=== PATIENT | female | born 1970 | race African-American/Black ===

== ENCOUNTER 2017-11-24 23:08 | Inpatient (IN) | payer OTHER ==
[~2017-11-24] VITALS: Ht 162.6 cm; Wt 95.2 kg
[2017-11-24] MEDS ORDERED: HALO1 PO (23:19)
[2017-11-24 23:34] LABS: BASOPHILS % (AUTO) 0.2 % (0.0-2.0); EOSINOPHILS % (AUTO) 0.4 % (1.0-6.0); LYMPHOCYTES # (AUTO) 1.6 K/uL (1.0-4.8); MEAN CORPUSCULAR HEMOGLOBIN 20.5 pg (26.0-34.0); MEAN CORPUSCULAR HGB CONC 30.9 G/dL (31.0-37.0); MEAN CORPUSCULAR VOLUME 66 fL (80-100); MONOCYTES # (AUTO) 0.7 K/uL (0.1-1.0); MONOCYTES % (AUTO) 7.6 % (2.0-9.0); NEUTROPHILS # (AUTO) 7.5 K/uL (1.8-7.7); NEUTROPHILS % (AUTO) 75.8 % (40.0-70.0); PLATELET COUNT (AUTO) 212 K/uL (150-450); RED BLOOD CELL COUNT(AUTO) 3.05 MIL/uL (4.00-5.20); RED CELL DISTRIBUTION WIDTH 17.4 % (11.5-14.5)
[2017-11-24 23:45] LABS: HEMOGLOBIN 6.2 g/dL (12.0-16.0)
[2017-11-24 23:46] LABS: HEMATOCRIT 20.2 % (36-46)
[2017-11-24 23:54] LABS: APPEARANCE,URINE CLEAR (CLEAR); BILIRUBIN,URINE NEGATIVE (NEGATIVE); GLUCOSE, URINE (UA) NEGATIVE (NEGATIVE); KETONES,URINE NEGATIVE (NEGATIVE); LEUKOCYTE ESTERASE ,URINE NEGATIVE (NEGATIVE); NITRATE,URINE NEGATIVE (NEGATIVE); OCCULT BLOOD,URINE NEGATIVE (NEGATIVE); PH,URINE 7.5 (5.0-8.0); PROTEIN,URINE NEGATIVE (NEGATIVE); UROBILINOGEN,URINE 0.2 mg/dL (<=1.0)
[2017-11-24 23:59] LABS: ANION GAP 7 mmol/L (8-16); CARBON DIOXIDE 26 mmol/L (22-29); CHLORIDE 103 mmol/L (98-107); CREATININE 0.68 mg/dL (0.60-1.30); GLOMERULAR FILTR. RATE CALC > 60 mL/min (>60); GLUCOSE,RANDOM 111 mg/dL (70-110); POTASSIUM 3.9 mmol/L (3.5-5.1); SODIUM SERUM 136 mmol/L (136-145); UREA NITROGEN, BLOOD 14 mg/dL (7-18)
[2017-11-25] VITALS (24 sets, daily range): BP systolic 110–172; BP diastolic 51–88
[2017-11-25 00:04] LABS: ALANINE AMINOTRANSFERASE 20 U/L (12-78); ALBUMIN 3.8 g/dL (3.4-5.0); ALKALINE PHOSPHATASE 64 U/L (46-116); ASPARTATE AMINOTRANSFERASE 19 U/L (15-37); BILIRUBIN,TOTAL 0.4 mg/dL (0.1-1.0); LIPASE 61 U/L (73-393); TOTAL PROTEIN, SERUM 7.5 g/dL (6.4-8.2)
[2017-11-25] MEDS ORDERED: SODIUM CHLORIDE 0.9% 1,000 ML IV ONE (00:15)
[2017-11-25] MEDS ORDERED: IOVERSOL 350 MG/ML 150 ML VIAL ONE (00:49)
[2017-11-25] MEDS ORDERED: SODIUM CHLORIDE 0.9% 100 ML ONE (00:49)
[2017-11-25] MEDS ORDERED: 0.9% SODIUM CHLORIDE 10 ML SYRINGE IVP PRN (04:00)
[2017-11-25] MEDS ORDERED: ONDANSETRON HCL 4 MG/2 ML VIAL IVP PRN ×2 (04:00→04:45)
[2017-11-25] MEDS ORDERED: ACETAMINOPHEN 325 MG TABLET PO PRN ×2 (04:00→04:45)
[2017-11-25] MEDS ORDERED: ALBUTEROL SULFATE 2.5 MG/0.5 ML NEB SOLUTION NEB PRN (04:45)
[2017-11-25] MEDS ORDERED: IPRATROPIUM BROMIDE 0.5 MG/2.5 ML NEB SOLUTION NEB PRN (04:45)
[2017-11-25] MEDS ORDERED: OxyCODONE HCL/ACETAMINOPHEN 5-325 MG TABLET PO PRN (04:45)
[2017-11-25] MEDS ORDERED: MAGNESIUM HYDROXIDE SUSPENSION 30 ML UDCUP PO PRN (04:45)
[2017-11-25] MEDS ORDERED: ZOLPIDEM TARTRATE 5 MG TABLET PO PRN (04:45)
[2017-11-25] MEDS ORDERED: MORPHINE SULFATE 2 MG/ML SYRINGE IVP PRN (04:45)
[2017-11-25] MEDS ORDERED: BISACODYL 10 MG RECTAL RECTAL SUPPOSITORY PR PRN (04:45)
[2017-11-25] MEDS ORDERED: INFLUENZA VIRUS VACCINE QVS 2017-18 (3YR+)/PF 60 MCG/0.5 ML SYRINGE IM ONE (06:15)
[2017-11-25] MEDS: PANTOPRAZOLE SODIUM 40 MG DR TABLET PO SCH (08:52)
[2017-11-25] MEDS: MULTIVITAMINS WITH MINERALS, THERAPEUTIC TABLET PO SCH (08:52)
[2017-11-25] MEDS: FERROUS SULFATE 325 MG EC TABLET PO SCH ×2 (08:52→17:57)
[2017-11-25] MEDS ORDERED: HALOPERIDOL 1 MG TABLET PO SCH (09:00)
[2017-11-25] MEDS ORDERED: HALOPERIDOL 5 MG TABLET PO SCH (21:00)
[2017-11-26] VITALS: BP 146/79
[2017-11-26 04:00] VITALS: BP 134/83
[2017-11-26 06:17] LABS: BASOPHILS % (AUTO) 0.2 % (0.0-2.0); EOSINOPHILS % (AUTO) 1.1 % (1.0-6.0); HEMOGLOBIN 8.2 g/dL (12.0-16.0); LYMPHOCYTES # (AUTO) 2.2 K/uL (1.0-4.8); LYMPHOCYTES % (AUTO) 27.8 % (22.0-44.0); MEAN CORPUSCULAR HGB CONC 32.9 G/dL (31.0-37.0); MEAN CORPUSCULAR VOLUME 70 fL (80-100); MONOCYTES # (AUTO) 0.6 K/uL (0.1-1.0); NEUTROPHILS # (AUTO) 4.9 K/uL (1.8-7.7); NEUTROPHILS % (AUTO) 62.9 % (40.0-70.0); PLATELET COUNT (AUTO) 165 K/uL (150-450); RED BLOOD CELL COUNT(AUTO) 3.57 MIL/uL (4.00-5.20); RED CELL DISTRIBUTION WIDTH 21.3 % (11.5-14.5)
[2017-11-26 06:39] LABS: ALANINE AMINOTRANSFERASE 19 U/L (12-78); ALKALINE PHOSPHATASE 55 U/L (46-116); ANION GAP 7 mmol/L (8-16); ASPARTATE AMINOTRANSFERASE 15 U/L (15-37); BILIRUBIN,TOTAL 0.6 mg/dL (0.1-1.0); CALCIUM, TOTAL 8.4 mg/dL (8.8-10.5); CARBON DIOXIDE 25 mmol/L (22-29); CHLORIDE 106 mmol/L (98-107); CHOL/HDL RATIO 1.9 (3.9-5.7); CHOLESTEROL 128 mg/dL (131-200); GLOMERULAR FILTR. RATE CALC > 60 mL/min (>60); GLUCOSE,RANDOM 88 mg/dL (70-110); HDL CHOLESTEROL 67 mg/dL (40-60); LDL CHOL (CALC.) 47 mg/dL (0-130); POTASSIUM 3.7 mmol/L (3.5-5.1); SODIUM SERUM 138 mmol/L (136-145); THYROID STIMULATING HORMONE 2.74 uIU/mL (0.36-3.74); TOTAL PROTEIN, SERUM 6.3 g/dL (6.4-8.2); TRIGLYCERIDES 68 mg/dL (15-150); UREA NITROGEN, BLOOD 7 mg/dL (7-18)
[2017-11-26 06:51] LABS: % IRON SATURATION 8.7 % (22-44); IRON, SERUM 34 mcg/dL (50-175); TOTAL IRON BINDING CAPACITY 387 mcg/dL (250-450)
[2017-11-26 07:53] VITALS: BP 131/76
[2017-11-26] MEDS: FERROUS SULFATE 325 MG EC TABLET PO SCH (08:00)
[2017-11-26] MEDS: PANTOPRAZOLE SODIUM 40 MG DR TABLET PO SCH (08:10)
[2017-11-26] MEDS: MULTIVITAMINS WITH MINERALS, THERAPEUTIC TABLET PO SCH (08:10)
[2017-11-26] MEDS ORDERED: SODIUM CHLORIDE 0.9% 1,000 ML IV ONE ×2 (09:00→09:11)
[2017-11-26 09:12] LABS: INR 0.9 (0.9-1.1); PROTHROMBIN TIME 9.9 SEC (9.4-11.6)
[2017-11-26 11:11] VITALS: BP 143/85
[2017-11-26] MEDS ORDERED: PROPOFOL 1% 20 ML VIAL IVP ONE (12:00)
[2017-11-26] MEDS ORDERED: LIDOCAINE HCL/PF 2% 5 ML VIAL INJ ONE (12:00)
[2017-11-26 15:21] VITALS: BP 126/64
[2017-11-26] MEDS ORDERED: DOCU-119 PO (18:10)
[2017-11-26] MEDS ORDERED: FERR-89 PO (18:11)
[2017-11-26] MEDS ORDERED: PANT40TA25 PO (18:11)
== END 2017-11-26 18:35 | disposition home or self-care (01) | DRG 254 ==
LOC: EMS 23:12 → 4E 11-25 03:48
PROVIDERS: ADMIT Internal Medicine; ATTEND Internal Medicine
PROC: 30233N1 Transfusion of Nonautologous Red Blood Cells into Peripheral Vein, Percutaneous Approach (ICD-10-PCS; 2017-11-25)
PROC: 0DJ08ZZ Inspection of Upper Intestinal Tract, Via Natural or Artificial Opening Endoscopic (ICD-10-PCS; principal; 2017-11-26 10:00)
DX: K44.9 Diaphragmatic hernia without obstruction or gangrene (principal); D25.9 Leiomyoma of uterus, unspecified; R10.9 Unspecified abdominal pain; D63.8 Anemia in other chronic diseases classified elsewhere; E66.9 Obesity, unspecified; Z68.36 Body mass index [BMI] 36.0-36.9, adult; Z88.1 Allergy status to other antibiotic agents
CPT/HCPCS: 74177; 82270; 82306; 83540; 83550; 83735; 84100; 84443; 86850; 86900; 86901; 86920; 96360; 99285; J2704; J3490; J7030; J7050; P9016

== ENCOUNTER 2018-11-18 05:11 | Emergency (ER) | payer OTHER ==
[~2018-11-18] VITALS: Ht 162.6 cm; Wt 81.8 kg
[~2018-11-18 05:11] MED LIST: DOCU-119 PO; FERR-89 PO; PANT40TA25 PO
[2018-11-18] MEDS ORDERED: HYDROCODONE/ACETAMINOPHEN 5-325 MG TABLET PO ONE (06:15)
[2018-11-18] MEDS ORDERED: CYCLOBENZAPRINE HCL 10 MG TABLET PO ONE (06:15)
[2018-11-18 10:02] LABS: APPEARANCE,URINE CLOUDY (CLEAR); BILIRUBIN,URINE NEGATIVE (NEGATIVE); GLUCOSE, URINE (UA) NEGATIVE (NEGATIVE); KETONES,URINE NEGATIVE (NEGATIVE); LEUKOCYTE ESTERASE ,URINE SMALL (NEGATIVE); NITRATE,URINE NEGATIVE (NEGATIVE); OCCULT BLOOD,URINE LARGE (NEGATIVE); PROTEIN,URINE TRACE (NEGATIVE)
[2018-11-18 10:34] LABS: BACTERIA,URINE Moderate /HPF (None Seen); SQUAMOUS EPITHELIAL CELL,UR Moderate /LPF (None Seen)
[2018-11-18 11:17] VITALS: BP 110/67
== END 2018-11-18 11:43 | disposition home or self-care (01) ==
LOC: EMS 05:13
DX: M54.5 Low back pain (principal); N39.0 Urinary tract infection, site not specified; G89.29 Other chronic pain; F17.210 Nicotine dependence, cigarettes, uncomplicated; F12.90 Cannabis use, unspecified, uncomplicated; Z88.0 Allergy status to penicillin; Z88.6 Allergy status to analgesic agent
CPT/HCPCS: 72131; 74176; 87086; 99406

== ENCOUNTER 2019-03-05 13:18 | Emergency (ER) | payer OTHER ==
[~2019-03-05] VITALS: Ht 162.6 cm; Wt 90.9 kg
[~2019-03-05 13:18] MED LIST changes: -DOCU-119 PO; -PANT40TA25 PO
[2019-03-05] MEDS ORDERED: ACETAMINOPHEN 500 MG TABLET PO ONE (14:30)
[2019-03-05 16:00] VITALS: BP 121/90
== END 2019-03-05 16:11 | disposition home or self-care (01) ==
LOC: EMS 13:19
DX: R51 Headache (principal); F12.90 Cannabis use, unspecified, uncomplicated; Z88.1 Allergy status to other antibiotic agents; Z88.0 Allergy status to penicillin

== ENCOUNTER 2019-08-05 11:31 | Emergency (ER) | payer OTHER ==
[~2019-08-05] VITALS: Ht 162.6 cm; Wt 94.5 kg
[2019-08-05] MEDS ORDERED: ACETAMINOPHEN 500 MG TABLET PO ONE (15:00)
[2019-08-05] MEDS ORDERED: TraMADol HCL 50 MG TABLET PO ONE (15:15)
[2019-08-05 16:24] VITALS: BP 125/79
== END 2019-08-05 16:25 | disposition home or self-care (01) ==
LOC: EMS 11:31
DX: M77.9 Enthesopathy, unspecified (principal); F12.90 Cannabis use, unspecified, uncomplicated; Z88.6 Allergy status to analgesic agent; Z88.1 Allergy status to other antibiotic agents
CPT/HCPCS: 29105

== ENCOUNTER 2022-03-03 14:36 | Emergency (ER) | payer OTHER ==
[~2022-03-03] VITALS: Ht 165.1 cm; Wt 100.0 kg
[2022-03-03] MEDS ORDERED: SODIUM CHLORIDE 0.9% 1,000 ML IV ONE (16:00)
[2022-03-03] MEDS ORDERED: MORPHINE SULFATE 2 MG/ML SYRINGE IVP ONE (16:00)
[2022-03-03 16:15] LABS: BASOPHILS % (AUTO) 0.3 % (0.0-2.0); HEMATOCRIT 40.1 % (36-46); HEMOGLOBIN 13.5 g/dL (12.0-16.0); LYMPHOCYTES # (AUTO) 1.8 K/uL (1.0-4.8); LYMPHOCYTES % (AUTO) 28.1 % (22.0-44.0); MEAN CORPUSCULAR HEMOGLOBIN 31.4 pg (26.0-34.0); MEAN CORPUSCULAR HGB CONC 33.5 G/dL (31.0-37.0); MEAN CORPUSCULAR VOLUME 94 fL (80-100); MONOCYTES # (AUTO) 0.7 K/uL (0.1-1.0); MONOCYTES % (AUTO) 11.1 % (2.0-9.0); NEUTROPHILS # (AUTO) 3.7 K/uL (1.8-7.7); NEUTROPHILS % (AUTO) 58.5 % (40.0-70.0); PLATELET COUNT (AUTO) 165 K/uL (150-450); RED BLOOD CELL COUNT(AUTO) 4.29 MIL/uL (4.00-5.20); RED CELL DISTRIBUTION WIDTH 12.3 % (11.5-14.5)
[2022-03-03 16:26] LABS: ANION GAP 6 mmol/L (8-16); CALCIUM, TOTAL 8.5 mg/dL (8.8-10.5); CARBON DIOXIDE 26 mmol/L (22-29); CHLORIDE 103 mmol/L (98-107); CREATININE 0.78 mg/dL (0.60-1.30); GLOMERULAR FILTR. RATE CALC > 60 mL/min (>60); GLUCOSE,RANDOM 85 mg/dL (70-110); POTASSIUM 3.9 mmol/L (3.5-5.1); SODIUM SERUM 135 mmol/L (136-145); UREA NITROGEN, BLOOD 14 mg/dL (7-18)
[2022-03-03 16:38] LABS: ALANINE AMINOTRANSFERASE 27 U/L (12-78); ALBUMIN 3.7 g/dL (3.4-5.0); ALKALINE PHOSPHATASE 85 U/L (46-116); ASPARTATE AMINOTRANSFERASE 17 U/L (15-37); BILIRUBIN,TOTAL 0.6 mg/dL (0.1-1.0); HCG,QUANTITATIVE < 1 mIU/mL (0-6); LIPASE 55 U/L (73-393)
[2022-03-03 17:15] LABS: APPEARANCE,URINE HAZY (CLEAR); BILIRUBIN,URINE NEGATIVE (NEGATIVE); GLUCOSE, URINE (UA) NEGATIVE (NEGATIVE); KETONES,URINE NEGATIVE (NEGATIVE); LEUKOCYTE ESTERASE ,URINE LARGE (NEGATIVE); NITRATE,URINE NEGATIVE (NEGATIVE); OCCULT BLOOD,URINE NEGATIVE (NEGATIVE); PH,URINE 5.5 (5.0-8.0); PROTEIN,URINE TRACE mg/dL (NEGATIVE); SPECIFIC GRAVITIY, URINE 1.027 (1.003-1.030); UROBILINOGEN,URINE <=1.0 mg/dL (<=1.0)
[2022-03-03 17:34] LABS: SQUAMOUS EPITHELIAL CELL,UR Many /LPF (None Seen)
[2022-03-03 17:35] LABS: BACTERIA,URINE Few /HPF (None Seen); CALCIUM OXALATE CRYSTALS,UR Rare /LPF (None Seen); RBC,URINE None Seen /HPF (0-2)
[2022-03-03 19:08] VITALS: BP 124/79
== END 2022-03-03 19:09 | disposition home or self-care (01) ==
LOC: EMS 14:36
DX: N39.0 Urinary tract infection, site not specified (principal); D25.9 Leiomyoma of uterus, unspecified; R10.31 Right lower quadrant pain; J98.6 Disorders of diaphragm; K44.9 Diaphragmatic hernia without obstruction or gangrene; Z88.0 Allergy status to penicillin; Z88.6 Allergy status to analgesic agent
CPT/HCPCS: 36415; 74176; 80053; 81001; 83690; 84702; 85025; 87086; 96361; 96374; 99284; J2270; J7030

== ENCOUNTER 2023-02-03 08:53 | Emergency (ER) | payer OTHER ==
[~2023-02-03] VITALS: Ht 165.1 cm; Wt 100.0 kg
[2023-02-03 13:38] LABS: EOSINOPHILS % (AUTO) 2.3 % (1.0-6.0); HEMATOCRIT 41.1 % (36-46); HEMOGLOBIN 13.5 g/dL (12.0-16.0); LYMPHOCYTES # (AUTO) 1.7 K/uL (1.0-4.8); LYMPHOCYTES % (AUTO) 45.4 % (22.0-44.0); MEAN CORPUSCULAR HEMOGLOBIN 30.2 pg (26.0-34.0); MEAN CORPUSCULAR HGB CONC 32.8 G/dL (31.0-37.0); MEAN CORPUSCULAR VOLUME 92 fL (80-100); MONOCYTES # (AUTO) 0.3 K/uL (0.1-1.0); MONOCYTES % (AUTO) 9.2 % (2.0-9.0); NEUTROPHILS # (AUTO) 1.6 K/uL (1.8-7.7); NEUTROPHILS % (AUTO) 42.1 % (40.0-70.0); PLATELET COUNT (AUTO) 149 K/uL (150-450); RED BLOOD CELL COUNT(AUTO) 4.46 MIL/uL (4.00-5.20); RED CELL DISTRIBUTION WIDTH 12.6 % (11.5-14.5)
[2023-02-03 13:44] LABS: ANION GAP 8 mmol/L (8-16); CARBON DIOXIDE 28 mmol/L (22-29); CHLORIDE 106 mmol/L (98-107); CREATININE 0.72 mg/dL (0.60-1.30); GLOMERULAR FILTR. RATE CALC > 60 mL/min (>60); GLUCOSE,RANDOM 107 mg/dL (70-110); POTASSIUM 4.1 mmol/L (3.5-5.1); SODIUM SERUM 142 mmol/L (136-145); UREA NITROGEN, BLOOD 12 mg/dL (7-18)
[2023-02-03 13:50] LABS: ALANINE AMINOTRANSFERASE 23 U/L (12-78); ALBUMIN 3.8 g/dL (3.4-5.0); ALKALINE PHOSPHATASE 92 U/L (46-116); ASPARTATE AMINOTRANSFERASE 16 U/L (15-37); BILIRUBIN,TOTAL 0.7 mg/dL (0.1-1.0); TOTAL PROTEIN, SERUM 7.2 g/dL (6.4-8.2)
[2023-02-03 14:07] LABS: APPEARANCE,URINE CLEAR (CLEAR); BILIRUBIN,URINE NEGATIVE (NEGATIVE); GLUCOSE, URINE (UA) NEGATIVE (NEGATIVE); KETONES,URINE NEGATIVE (NEGATIVE); LEUKOCYTE ESTERASE ,URINE LARGE (NEGATIVE); NITRATE,URINE NEGATIVE (NEGATIVE); OCCULT BLOOD,URINE NEGATIVE (NEGATIVE); PROTEIN,URINE NEGATIVE (NEGATIVE); SPECIFIC GRAVITIY, URINE 1.014 (1.003-1.030); UROBILINOGEN,URINE <=1.0 mg/dL (<=1.0)
[2023-02-03 14:10] VITALS: BP 108/60
[2023-02-03 14:26] LABS: BACTERIA,URINE Few /HPF (None Seen); RBC,URINE None Seen /HPF (0-2); SQUAMOUS EPITHELIAL CELL,UR Few /LPF (None Seen)
[2023-02-03] MEDS ORDERED: CEPH-558 PO (14:58)
[2023-02-03] MEDS ORDERED: CEPHALEXIN MONOHYDRATE 500 MG CAPSULE PO ONE (15:00)
[2023-02-03] MEDS ORDERED: PHEN-674 PO (15:06)
== END 2023-02-03 15:16 | disposition home or self-care (01) ==
LOC: EMS 09:19
DX: N39.0 Urinary tract infection, site not specified (principal); Z98.890 Other specified postprocedural states; Z88.6 Allergy status to analgesic agent; Z88.8 Allergy status to other drugs, medicaments and biological substances
CPT/HCPCS: 80053; 81001; 85025; 87086; 87186; 99283

== ENCOUNTER 2024-01-24 10:23 | Emergency (ER) | payer OTHER ==
[~2024-01-24] VITALS: Ht 162.6 cm; Wt 100.5 kg
[~2024-01-24 10:23] MED LIST changes: +CEPH-558 PO; -FERR-89 PO; +PHEN-674 PO
[2024-01-24 10:39] VITALS: TEMP 97.8
[2024-01-24 11:05] LABS: BASOPHILS % (AUTO) 0.4 % (0.0-2.0); EOSINOPHILS % (AUTO) 2.9 % (1.0-6.0); HEMOGLOBIN 14.1 g/dL (12.0-16.0); LYMPHOCYTES # (AUTO) 2.6 K/uL (1.0-4.8); MEAN CORPUSCULAR HEMOGLOBIN 30.9 pg (26.0-34.0); MEAN CORPUSCULAR HGB CONC 33.6 G/dL (31.0-37.0); MEAN CORPUSCULAR VOLUME 92 fL (80-100); MONOCYTES # (AUTO) 0.5 K/uL (0.1-1.0); MONOCYTES % (AUTO) 8.2 % (2.0-9.0); NEUTROPHILS # (AUTO) 2.8 K/uL (1.8-7.7); NEUTROPHILS % (AUTO) 45.5 % (40.0-70.0); PLATELET COUNT (AUTO) 166 K/uL (150-450); RED BLOOD CELL COUNT(AUTO) 4.56 MIL/uL (4.00-5.20); RED CELL DISTRIBUTION WIDTH 12.1 % (11.5-14.5); WHITE BLOOD COUNT (AUTO) 6.1 K/uL (4.5-11.0)
[2024-01-24 11:06] LABS: APPEARANCE,URINE HAZY (CLEAR); BILIRUBIN,URINE NEGATIVE (NEGATIVE); COLOR,URINE LIGHT YELLOW (YELLOW); GLUCOSE, URINE (UA) NEGATIVE (NEGATIVE); KETONES,URINE NEGATIVE (NEGATIVE); LEUKOCYTE ESTERASE ,URINE SMALL (NEGATIVE); NITRATE,URINE NEGATIVE (NEGATIVE); OCCULT BLOOD,URINE NEGATIVE (NEGATIVE); PH,URINE 5.5 (5.0-8.0); PROTEIN,URINE NEGATIVE (NEGATIVE); SPECIFIC GRAVITIY, URINE 1.024 (1.003-1.030); UROBILINOGEN,URINE <=1.0 mg/dL (<=1.0)
[2024-01-24 11:17] LABS: BACTERIA,URINE Few /HPF (None Seen); RBC,URINE None Seen /HPF (0-2); SQUAMOUS EPITHELIAL CELL,UR Few /LPF (None Seen)
[2024-01-24 11:22] LABS: ANION GAP 10 mmol/L (8-16); CALCIUM, TOTAL 8.9 mg/dL (8.8-10.5); CARBON DIOXIDE 25 mmol/L (22-29); CHLORIDE 105 mmol/L (98-107); CREATININE 0.83 mg/dL (0.60-1.30); GLOMERULAR FILTR. RATE CALC > 60 mL/min (>60); GLUCOSE,RANDOM 104 mg/dL (70-110); POTASSIUM 4.3 mmol/L (3.5-5.1); SODIUM SERUM 140 mmol/L (136-145); UREA NITROGEN, BLOOD 18 mg/dL (7-18)
[2024-01-24 11:31] LABS: ALANINE AMINOTRANSFERASE 19 U/L (12-78); ALBUMIN 3.7 g/dL (3.4-5.0); ALKALINE PHOSPHATASE 95 U/L (46-116); ASPARTATE AMINOTRANSFERASE 16 U/L (15-37); BILIRUBIN,TOTAL 0.7 mg/dL (0.1-1.0); HCG,QUANTITATIVE 1 mIU/mL (0-6); TOTAL PROTEIN, SERUM 7.7 g/dL (6.4-8.2)
[2024-01-24] MEDS: SODIUM CHLORIDE 0.9% 1,000 ML IV ONE (12:06)
[2024-01-24] MEDS: TraMADol HCL 50 MG TABLET PO ONE (13:15)
[2024-01-24] MEDS ORDERED: TRAM50TA5 PO (14:37)
[2024-01-24 17:02] VITALS: BP 140/75; PULSE 65; RESP 16
== END 2024-01-24 17:04 | disposition home or self-care (01) ==
LOC: EMS 10:23
DX: D25.9 Leiomyoma of uterus, unspecified (principal); R91.1 Solitary pulmonary nodule; N39.0 Urinary tract infection, site not specified; Z98.890 Other specified postprocedural states; Z88.6 Allergy status to analgesic agent; Z88.8 Allergy status to other drugs, medicaments and biological substances
CPT/HCPCS: 99284; 71250; 96360; 76856; 80053; 81001; 84702; 85025; 36415; 74176; J7030

== ENCOUNTER 2024-01-27 13:35 | Emergency (ER) | payer OTHER ==
[~2024-01-27] VITALS: Ht 162.6 cm; Wt 100.5 kg
[~2024-01-27 13:35] MED LIST changes: +TRAM50TA5 PO
[2024-01-27 14:00] VITALS: TEMP 98.6
[2024-01-27 14:43] LABS: BASOPHILS % (AUTO) 0.2 % (0.0-2.0); EOSINOPHILS % (AUTO) 1.1 % (1.0-6.0); HEMATOCRIT 38.3 % (36-46); HEMOGLOBIN 12.9 g/dL (12.0-16.0); LYMPHOCYTES # (AUTO) 1.7 K/uL (1.0-4.8); LYMPHOCYTES % (AUTO) 22.1 % (22.0-44.0); MEAN CORPUSCULAR HEMOGLOBIN 30.7 pg (26.0-34.0); MEAN CORPUSCULAR HGB CONC 33.7 G/dL (31.0-37.0); MEAN CORPUSCULAR VOLUME 91 fL (80-100); MONOCYTES # (AUTO) 0.7 K/uL (0.1-1.0); MONOCYTES % (AUTO) 9.1 % (2.0-9.0); NEUTROPHILS % (AUTO) 67.5 % (40.0-70.0); PLATELET COUNT (AUTO) 140 K/uL (150-450); RED CELL DISTRIBUTION WIDTH 12.2 % (11.5-14.5); WHITE BLOOD COUNT (AUTO) 7.5 K/uL (4.5-11.0)
[2024-01-27 15:01] LABS: ANION GAP 8 mmol/L (8-16); CALCIUM, TOTAL 8.4 mg/dL (8.8-10.5); CARBON DIOXIDE 28 mmol/L (22-29); CHLORIDE 106 mmol/L (98-107); GLOMERULAR FILTR. RATE CALC > 60 mL/min (>60); GLUCOSE,RANDOM 111 mg/dL (70-110); POTASSIUM 3.6 mmol/L (3.5-5.1); SODIUM SERUM 142 mmol/L (136-145); TROPONIN I-HIGH SENSITIVITY Less Than 4 ng/L (<51); UREA NITROGEN, BLOOD 15 mg/dL (7-18)
[2024-01-27 15:04] LABS: ALANINE AMINOTRANSFERASE 15 U/L (12-78); ALKALINE PHOSPHATASE 83 U/L (46-116); ASPARTATE AMINOTRANSFERASE 11 U/L (15-37); BILIRUBIN,TOTAL 1.1 mg/dL (0.1-1.0); LIPASE 15 U/L (16-77); TOTAL PROTEIN, SERUM 6.8 g/dL (6.4-8.2)
[2024-01-27 15:07] LABS: LACTIC ACID 1.1 mmol/L (0.4-2.0)
[2024-01-27] MEDS ORDERED: IOHEXOL 350 MG/ML 100 ML VIAL ONE (16:54)
[2024-01-27] MEDS ORDERED: SODIUM CHLORIDE 0.9% 100 ML ONE (16:54)
[2024-01-27] MEDS: SODIUM CHLORIDE 0.9% 1,000 ML IV ONE (17:34)
[2024-01-27] MEDS: MORPHINE SULFATE 4 MG/ML SYRINGE IVP ONE (17:34)
[2024-01-27] MEDS: ONDANSETRON HCL 4 MG/2 ML VIAL IVP ONE (17:35)
[2024-01-27] MEDS: IOHEXOL 9 MG/ML 500 ML BOTTLE PO ONE (17:35)
[2024-01-27 20:12] LABS: COVID AG,FIA SOURCE NASAL SWAB
[2024-01-27] MEDS ORDERED: OMEP20 PO (20:42)
[2024-01-27] MEDS ORDERED: ONDA-104 PO (20:42)
[2024-01-27] MEDS ORDERED: HYDR-4062 PO (20:42)
[2024-01-27 20:51] LABS: SARS-COV2 (COVID) ANTIGEN,FIA Negative (Negative)
[2024-01-27] MEDS: HYDROCODONE/ACETAMINOPHEN 5-325 MG TABLET PO ONE (20:58)
[2024-01-27] MEDS: OMEPRAZOLE 20 MG CAPSULE PO ONE (20:58)
[2024-01-27 21:35] VITALS: BP 123/74; PULSE 66; RESP 16
== END 2024-01-27 22:43 | disposition home or self-care (01) ==
LOC: EMS 15:06
DX: D25.9 Leiomyoma of uterus, unspecified (principal); K44.9 Diaphragmatic hernia without obstruction or gangrene; K57.90 Diverticulosis of intestine, part unspecified, without perforation or abscess without bleeding; Z98.890 Other specified postprocedural states; Z88.6 Allergy status to analgesic agent; Z88.8 Allergy status to other drugs, medicaments and biological substances; Z20.822 Contact with and (suspected) exposure to COVID-19
CPT/HCPCS: 99285; 74177; 96374; 71045; 96361; 96375; 87426; 80053; 83605; 83690; 84484; 85025; 36415; 93005; J2270; J2405; Q9967; J7030; J7050

== ENCOUNTER 2024-03-03 00:15 | Emergency (ER) | payer OTHER ==
[~2024-03-03] VITALS: Ht 162.6 cm; Wt 100.0 kg
[~2024-03-03 00:15] MED LIST changes: +HYDR-4062 PO; +OMEP20 PO; +ONDA-104 PO
[2024-03-03 00:25] VITALS: BP 128/72; PULSE 102; RESP 24; TEMP 98.1
[2024-03-03] MEDS: SODIUM CHLORIDE 0.9% 1,000 ML IV ONE (01:07)
[2024-03-03] MEDS: KETOROLAC TROMETHAMINE 30 MG/ML VIAL IVP ONE (01:08)
[2024-03-03] MEDS: METHOCARBAMOL 500 MG TABLET PO ONE (01:08)
[2024-03-03] MEDS: LIDOCAINE 5% TRANSDERMAL PATCH TD ONE (01:09)
[2024-03-03 01:28] LABS: BASOPHILS % (AUTO) 0.5 % (0.0-2.0); EOSINOPHILS % (AUTO) 0.9 % (1.0-6.0); LYMPHOCYTES # (AUTO) 1.7 K/uL (1.0-4.8); LYMPHOCYTES % (AUTO) 22.6 % (22.0-44.0); MEAN CORPUSCULAR HGB CONC 34.2 G/dL (31.0-37.0); MEAN CORPUSCULAR VOLUME 91 fL (80-100); MONOCYTES # (AUTO) 0.8 K/uL (0.1-1.0); MONOCYTES % (AUTO) 10.5 % (2.0-9.0); NEUTROPHILS # (AUTO) 4.8 K/uL (1.8-7.7); NEUTROPHILS % (AUTO) 65.5 % (40.0-70.0); PLATELET COUNT (AUTO) 148 K/uL (150-450); RED BLOOD CELL COUNT(AUTO) 4.52 MIL/uL (4.00-5.20); RED CELL DISTRIBUTION WIDTH 12.6 % (11.5-14.5); WHITE BLOOD COUNT (AUTO) 7.3 K/uL (4.5-11.0)
[2024-03-03 01:38] LABS: ANION GAP 9 mmol/L (8-16); CALCIUM, TOTAL 9.2 mg/dL (8.8-10.5); CARBON DIOXIDE 26 mmol/L (22-29); CHLORIDE 101 mmol/L (98-107); CREATININE 0.79 mg/dL (0.60-1.30); GLOMERULAR FILTR. RATE CALC > 60 mL/min (>60); GLUCOSE,RANDOM 117 mg/dL (70-110); POTASSIUM 3.8 mmol/L (3.5-5.1); SODIUM SERUM 136 mmol/L (136-145); UREA NITROGEN, BLOOD 13 mg/dL (7-18)
[2024-03-03 02:56] LABS: APPEARANCE,URINE CLEAR (CLEAR); BILIRUBIN,URINE NEGATIVE (NEGATIVE); COLOR,URINE YELLOW (YELLOW); GLUCOSE, URINE (UA) NEGATIVE (NEGATIVE); KETONES,URINE TRACE mg/dL (NEGATIVE); LEUKOCYTE ESTERASE ,URINE NEGATIVE (NEGATIVE); NITRATE,URINE NEGATIVE (NEGATIVE); OCCULT BLOOD,URINE NEGATIVE (NEGATIVE); PH,URINE 5.5 (5.0-8.0); PROTEIN,URINE TRACE mg/dL (NEGATIVE); UROBILINOGEN,URINE <=1.0 mg/dL (<=1.0)
[2024-03-03 02:57] LABS: BACTERIA,URINE None Seen /HPF (None Seen); RBC,URINE None Seen /HPF (0-2); SQUAMOUS EPITHELIAL CELL,UR Rare /LPF (None Seen); WBC,URINE None Seen /HPF (0-5)
[2024-03-03] MEDS ORDERED: IBUP-1492 PO (03:45)
[2024-03-03] MEDS ORDERED: METH-659 PO (03:45)
[2024-03-03] MEDS: OxyCODONE HCL/ACETAMINOPHEN 5-325 MG TABLET PO ONE (04:22)
== END 2024-03-03 04:39 | disposition home or self-care (01) ==
LOC: EMS 00:16
DX: M54.50 Low back pain, unspecified (principal); Z98.890 Other specified postprocedural states; Z88.6 Allergy status to analgesic agent; Z88.8 Allergy status to other drugs, medicaments and biological substances
CPT/HCPCS: 99284; 96374; 96361; 80048; 81001; 85025; 36415; J1885; J7030

== ENCOUNTER 2024-08-07 22:23 | Emergency (ER) | payer OTHER ==
[~2024-08-07] VITALS: Ht 160 cm; Wt 97.3 kg
[~2024-08-07 22:23] MED LIST changes: +IBUP-1492 PO; +METH-659 PO
[2024-08-07 22:32] VITALS: BP 127/74; PULSE 88; RESP 18; TEMP 98; O2SAT 98
== END 2024-08-08 01:31 | disposition home or self-care (01) ==
LOC: EMS 22:23
DX: K60.2 Anal fissure, unspecified (principal); Z88.0 Allergy status to penicillin; Z88.6 Allergy status to analgesic agent
CPT/HCPCS: 99282; Z7502

== ENCOUNTER 2024-09-04 19:06 | Emergency (ER) | payer OTHER ==
[~2024-09-04] VITALS: Ht 160 cm; Wt 95.0 kg
[2024-09-04 19:16] VITALS: BP 126/91; PULSE 86; RESP 18; TEMP 98.6; O2SAT 99
[2024-09-04] MEDS ORDERED: ARIP5TAB37 PO (19:18)
[2024-09-04] MEDS ORDERED: METH-811 PO (19:18)
[2024-09-04 19:53] LABS: APPEARANCE,URINE HAZY (CLEAR); BILIRUBIN,URINE NEGATIVE (NEGATIVE); COLOR,URINE YELLOW (YELLOW); GLUCOSE, URINE (UA) NEGATIVE (NEGATIVE); KETONES,URINE NEGATIVE (NEGATIVE); LEUKOCYTE ESTERASE ,URINE LARGE (NEGATIVE); NITRATE,URINE NEGATIVE (NEGATIVE); OCCULT BLOOD,URINE NEGATIVE (NEGATIVE); PH,URINE 5.5 (5.0-8.0); PROTEIN,URINE TRACE mg/dL (NEGATIVE); UROBILINOGEN,URINE <=1.0 mg/dL (<=1.0)
[2024-09-04 20:18] LABS: BACTERIA,URINE Moderate /HPF (None Seen); RBC,URINE 0-2 /HPF (0-2)
[2024-09-04 20:20] LABS: URINALYSIS COMMENT TRICHOMONAS SEEN
[2024-09-04 20:35] LABS: HCG,QUAL URINE NEGATIVE (NEGATIVE)
[2024-09-05] MEDS ORDERED: CIPR500T10 PO (00:03)
[2024-09-05] MEDS ORDERED: PHEN-674 PO (00:03)
[2024-09-05] MEDS ORDERED: METR500 PO (00:03)
== END 2024-09-05 00:12 | disposition home or self-care (01) ==
LOC: EMS 19:06
DX: H61.21 Impacted cerumen, right ear (principal); N39.0 Urinary tract infection, site not specified; Z88.0 Allergy status to penicillin; Z88.6 Allergy status to analgesic agent; Z79.899 Other long term (current) drug therapy
CPT/HCPCS: 69200; 69210; 81001; 84703; 87077; 87086; 87186; 99284; Z7502

== ENCOUNTER 2025-05-10 00:34 | Emergency (ER) | payer OTHER ==
[~2025-05-10] VITALS: Ht 177.8 cm; Wt 95.5 kg
[~2025-05-10 00:34] MED LIST changes: +ARIP5TAB37 PO; -CEPH-558 PO; +CIPR-515 PO; -HYDR-4062 PO; -IBUP-1492 PO; -METH-659 PO; +METH-811 PO; +METR500 PO; -OMEP20 PO; -ONDA-104 PO; -TRAM50TA5 PO
[2025-05-10 02:30] VITALS: TEMP 98.105288
[2025-05-10] MEDS: LIDOCAINE 5% TRANSDERMAL PATCH TD ONE (04:35)
[2025-05-10 04:40] LABS: PLATELET COUNT (AUTO) 172 K/uL (150-450); RED BLOOD CELL COUNT(AUTO) 4.24 MIL/uL (4.00-5.20); RED CELL DISTRIBUTION WIDTH 12.4 % (11.5-14.5); WHITE BLOOD COUNT (AUTO) 7.2 K/uL (4.5-11.0)
[2025-05-10 04:50] LABS: CALCIUM, TOTAL 8.5 mg/dL (8.8-10.5); CREATININE 0.87 mg/dL (0.60-1.30); GLOMERULAR FILTR. RATE CALC > 60 mL/min (>60); GLUCOSE,RANDOM 104 mg/dL (70-110); SODIUM SERUM 138 mmol/L (136-145); UREA NITROGEN, BLOOD 12 mg/dL (7-18)
[2025-05-10] MEDS ORDERED: LIDO-57 TP (05:33)
[2025-05-10] MEDS ORDERED: TRAM50TA5 PO (05:33)
[2025-05-10 05:34] VITALS: BP 130/72; PULSE 70; RESP 18; O2SAT 99
== END 2025-05-10 06:00 | disposition home or self-care (01) ==
LOC: EMS 00:41
DX: G89.29 Other chronic pain (principal); M54.50 Low back pain, unspecified; Z88.6 Allergy status to analgesic agent; Z79.899 Other long term (current) drug therapy; Z88.0 Allergy status to penicillin; Z98.890 Other specified postprocedural states
CPT/HCPCS: 72100; 80048; 84703; 85025; 99284